=== PATIENT | male | born 1970 | race Caucasian/White ===

== ENCOUNTER 2020-04-30 13:51 | Emergency (ER) | payer OTHER, SELFPAY ==
[2020-04-30 15:20] VITALS: BP 140/98; PULSE 94; RESP 20; TEMP 36.3; O2SAT 98; BMI 29.1
--- NOTE | 2020-04-30 15:30 | HMH.EDUTC ---
[facility] [place] Disposition Clinical Impression: Exposure to COVID-19 virus Disposition: Home, Self-Care Condition on Discharge: Good Instructions: Preventing the Spread of Coronavirus Discharge Instructions Additional Instructions: Drink plenty of fluids. Take tylenol or ibuprofen for pain or fever. Take the medications as directed. Follow up with your regular doctor. GO TO THE ER FOR ANY WORSENING SYMPTOMS Referrals: PCP,No [Primary Care Provider] - Time of Disposition: 15:31 Medical Decision Making - Medical Records Medical records reviewed: No: I reviewed the patient's medical records. - Gonzalez Inquiry Pt receiving controlled substance: No Vital Signs: 04/30/20 15:20 04/30/20 15:35 Temperature 97.4 F L 97.4 F L Temperature Source Oral Pulse Rate 94 H Pulse Rate [Right Brachial] 94 H Respiratory Rate 20 20 Blood Pressure 140/98 H Blood Pressure [Right Arm] 140/98 H Blood Pressure Mean [Right Arm] 112 Blood Pressure Source [Right Arm] Automatic Cuff Blood Pressure Position [Right Arm] Sitting 02 Sat by Pulse Oximetry 98 Oxygen Delivery Method Room Air Orders (Tests/Meds): ORDERS Category Date Time Status Covid-19 Nasal PCR ([facility]) Routine Lab 04/30/20 15:35 Received [facility] [place] HPI - General Stated complaint: covid test Time Seen by Provider: 04/30/20 15:30 - History of Present Illness Provider Complaint: He states that he has been exposed to covid thru his work. He denies any symptoms so far. - Related Data Previous Rx's Medication Instructions Recorded Albuterol Sulfate [Albuterol HFA 1 - 2 puffs IH Q4-6H PRN #1 inh 03/29/19 Inhaler] Azithromycin [Z-Chan 250mg Tab*] 250 mg PO UD DOSE PK #6 tab 03/29/19 Ibuprofen [Ibuprofen 600mg 600 mg PO Q6HP PRN #30 tab 03/29/19 Tablet] Oseltamivir Phosphate [Tamiflu 75 mg PO BID #10 cap 03/29/19 75mg Capsule] predniSONE [Deltasone 10mg tablet] 10 mg PO BID 3 Days #6 tab 03/29/19 Allergies Allergy/AdvReac Type Severity Reaction Status Date / Time NO KNOWN ALLERGIES Allergy Uncoded 04/07/17 15:36 [facility] History - Hepatitis A Screen Attestation statement:: This patient has been screened for Hepatitis A risk factors. I have reviewed the patient's past medical history: Yes - Social History Smoking Status: Current every day smoker Tobacco Type: cigarettes # Packs/Day (cigarettes): 1 Alcohol Intake: never Occupational Status: employed Housing: house ROS Obtained: Yes All systems reviewed & no additional complaints - Constitutional Constitutional: Reports system reviewed and no additional complaints, except as docu - Eyes Eyes: Reports system reviewed and no additional complaints, except as docu - ENT Ears, Nose, Mouth, and Throat: Reports system reviewed and no additional complaints, except as docu - Cardiovascular Cardiovascular: Reports system reviewed and no additional complaints, except as docu - Respiratory Respiratory: Reports system reviewed and no additional complaints, except as docu - Gastrointestinal Gastrointestingal: Reports: system reviewed and no additional complaints, except as docu Physical Exam - General General appearance: alert, in no apparent distress - Head Head exam: atraumatic, normocephalic, normal inspection - Eye Eye exam: Present: normal appearance, PERRL, EOMI - ENT ENT exam: Present: normal exam, normal oropharynx, mucous membranes moist, TM's normal bilaterally, normal external ear exam - Neck Neck exam: Present: normal inspection, full ROM, trachea midline. Absent: meningismus, lymphadenopathy - Chest Chest inspection: Present: normal inspection, symmetric chest wall rise. Absent: tenderness - Respiratory Respiratory exam: Present: normal lung sounds bilaterally. Absent: respiratory distress - Cardiovascular Cardiovascular exam: Present: regular rate, normal rhythm. Absent: JVD - Abdominal Exam Abdominal exam: Present: soft, nor
[2020-04-30 15:35] VITALS: BP 140/98; PULSE 94; RESP 20; TEMP 36.3; O2SAT 98
== END 2020-04-30 15:38 | disposition home or self-care (01) ==
PROVIDERS: Emergency Provider Nurse Practitioner Family
DX: Z20.822 Contact with and (suspected) exposure to COVID-19 (principal); F17.210 Nicotine dependence, cigarettes, uncomplicated
CPT/HCPCS: 99202; G0463; U0003

== ENCOUNTER → 2023-01-23 10:07 | Outpatient (CLI) | payer SELFPAY | LOC: LAB.DROPOF 01-24 10:08 | PROVIDERS: PCP Student in an Organized Health Care Education/Training Program; Visit Provider Student in an Organized Health Care Education/Training Program | DX: J02.9 Acute pharyngitis, unspecified (principal); Z72.0 Tobacco use | CPT/HCPCS: 87070 ==

== ENCOUNTER 2024-01-04 10:42 | Outpatient (CLI) | payer SELFPAY ==
[2024-01-04 18:50] LABS: Coronavirus 19, PCR Not Detected (NotDetected); Influenza A, PCR Not Detected (NotDetected); Influenza B, PCR Not Detected (NotDetected)
== END 2024-01-04 23:59 | disposition home or self-care (01) ==
LOC: LAB.DROPOF 01-05 11:09
PROVIDERS: PCP Student in an Organized Health Care Education/Training Program; Visit Provider Student in an Organized Health Care Education/Training Program
DX: J06.9 Acute upper respiratory infection, unspecified (principal); F17.210 Nicotine dependence, cigarettes, uncomplicated; Z11.52 Encounter for screening for COVID-19
CPT/HCPCS: 87636

== ENCOUNTER 2024-02-20 11:04 | Emergency (ER) | payer SELFPAY ==
[2024-02-20 11:06] VITALS: BP 152/97; PULSE 81; RESP 16; TEMP 36.6; O2SAT 98; BMI 28.0
--- NOTE | 2024-02-20 11:11 | HMH.EDGENADL ---
Discharge Plan Disposition Patient Disposition: Home, Self-Care Condition: Good Prescriptions Prescriptions: New ondansetron 4 mg tablet,disintegrating 4 mg PO Q8H PRN (Reason: nausea and vomiting) 5 Days Qty: 12 0RF No Action benzonatate 100 mg capsule 100 mg PO BID PRN (Reason: cough) Qty: 20 0RF amoxicillin-pot clavulanate 875-125 mg tablet 1 tab PO BID 10 Days Qty: 20 0RF Referrals Follow up/Referrals: Elizabeth Ross PA [Primary Care Provider] - See instructions Clinical Impressions Clinical Impression: Concussion Stand Alone Forms Stand Alone Forms: Work/School Release Instructions Patient Instructions: Concussion Print Language Print Language: Lithuanian Discharge ED Provider: Ely Skelton General Adult HPI General Chief complaint: Dizziness Stated complaint: WC-02/18/24 1900 hours,dizziness, headache Time Seen by Provider: 02/20/24 11:11 History of Present Illness HPI narrative: Patient is a 54-year-old with past medical history of 2 prior concussions and tobacco use disorder presents to the emergency department with head injury. Patient hit his head on a metal bar 2 days ago did not lose consciousness no blood thinner use and since hitting his head he has had intermittent dizziness blurred vision headache nausea without vomiting and ringing in his years. Symptoms are worse whenever he touches the part on his head that he hit. No lacerations associated with injury. Patient also notes whenever he is up around at work and also cooking. No chest pain palpitations or shortness of breath associated symptoms. Patient has improvement whenever he takes a break and lays down. Has been taking Tylenol and ibuprofen for the headache with improvement of symptoms. Headache is mild to moderate and does not interfere with his day-to-day activities. No neck pain. Related Data Previous Rx's ?Medication ?Instructions ?Recorded benzonatate 100 mg capsule 100 mg PO BID PRN cough #20 caps 01/04/24 amoxicillin 875 mg-potassium 1 tab PO BID 10 days #20 tabs 01/05/24 clavulanate 125 mg tablet ondansetron 4 mg disintegrating 4 mg PO Q8H PRN nausea and 02/20/24 tablet vomiting 5 days #12 tabs Allergies Allergy/AdvReac Type Severity Reaction Status Date / Time NO KNOWN ALLERGIES Allergy Uncoded 05/25/23 11:05 [facility] Disclaimer: The information contained in this section may have been updated after the patient was seen, as this information can be updated by other users. Medical History Crushing injury, wrist Surgical History H/O: vasectomy Family History Other No significant family history Social History Smoking Status: Current every day smoker tobacco type: cigarettes packs per day: 1 second hand exposure: Yes alcohol intake: never current occupational status: other Travel in the last 8 weeks: None housing: house Other Medical History Have you received the Pneumonia Vaccine: No ROS Obtained: Yes All systems reviewed & no additional complaints except as documented Physical Exam General General appearance: alert and in no apparent distress Head Head exam: atraumatic and normocephalic Eye Eye exam: Present normal appearance and PERRL ENT ENT exam: Present normal exam Neck Neck exam: Present normal inspection and full ROM; Absent tenderness Chest Chest inspection: Present normal inspection and symmetric chest wall rise Respiratory Respiratory exam: Absent respiratory distress Cardiovascular Cardiovascular exam: Present regular rate and normal rhythm Abdominal Exam Abdominal exam: Present soft; Absent distention or tenderness Extremities Exam Extremities exam: Present normal inspection Back Exam Back exam: Present normal inspection; Absent tenderness Neurological Exam Neurological exam: Present alert, oriented X3, CN II-XII intact, normal gait and other (normal finger to nose and heel to garcia, Romberg negative, no nystagmus); Absent motor sensory deficit Medical Decision Making Medical Records Screening: Per USPSTF and CDC recommendations, given the prevalence of disease in our region, it is our hospital?s policy to screen for HIV and viral Hepatitis for all patients aged 18 and over and those with ongoing risk factors. Gonzalez Inquiry Pt receiving controlled substance: No Vital Signs: 02/20/24 11:06 Temperature 97.8 F Temperature Source Oral Pulse Rate [Radial] 81 Respiratory Rate 16 Blood Pressure [Right Arm] 152/97 H Blood Pressure Mean [Right Arm] 115 Blood Pressure Source [Right Arm] Automatic Cuff Blood Pressure Position [Right Arm] Sitting 02 Sat by Pulse Oximetry 98 Oxygen Delivery Method Room Air Orders (Tests/Meds): ORDERS Category Date Time Status HIV (1&2) Antibody Rapid Stat Lab 02/20/24 11:21 Ordered Hep C Ab with Reflex to RNA Stat Lab 02/20/24 11:21 Ordered Medical Decision Narrative: In summary, this 54-year-old presents to the emergency department today with head injury. On initial evaluation patient is hemodynamically stable saturating appropriately on room air afebrile no acute distress. Differential diagnosis includes but is not limited to concussion vertebral artery dissection intracranial hemorrhage skull fracture. History and physical exam is reassuring low suspicion of vertebral artery dissection intracranial hemorrhage or skull fracture based off of [place]e CT head rule and benign neurological exam. Symptoms are most consistent with a concussion. Patient tolerating p.o. with pain controlled at this time did not receive medication for treatment. On reassessment symptoms are well-controlled amendable for discharge with concussion diagnosis and strict return precautions. Of note, social determinants of health include limited health literacy. Critical Care Critical Care Time Critical Care Time: No
--- NOTE | 2024-02-20 11:13 | PC.NURSE ---
DR STARK AT BEDSIDE
[2024-02-20 11:28] VITALS: BP 152/97; PULSE 72; RESP 18; TEMP 36.6; O2SAT 100
== END 2024-02-20 11:30 | disposition home or self-care (01) ==
PROVIDERS: Emergency Provider Student in an Organized Health Care Education/Training Program; PCP Student in an Organized Health Care Education/Training Program
DX: S06.0XAA Concussion with loss of consciousness status unknown, initial encounter (principal); R42 Dizziness and giddiness; R51.9 Headache, unspecified; R11.0 Nausea; H53.8 Other visual disturbances; W22.8XXA Striking against or struck by other objects, initial encounter; Y93.9 Activity, unspecified; Y92.9 Unspecified place or not applicable
CPT/HCPCS: 99283

== ENCOUNTER 2024-04-01 13:01 | Emergency (ER) | payer SELFPAY ==
[2024-04-01 13:10] VITALS: BMI 28.0
--- NOTE | 2024-04-01 13:11 | HMH.EDGENADL ---
Discharge Plan Disposition Patient Disposition: Home, Self-Care Condition: Good Prescriptions Prescriptions: New prednisone 50 mg tablet 50 mg PO DAILY 5 Days Qty: 5 0RF [id number] [Bromfed DM] 2-30-10 mg/5 mL syrup 5 ml PO Q4H PRN (Reason: sinus symptoms) Qty: 118 0RF amoxicillin-pot clavulanate 875-125 mg tablet 1 tab PO BID Qty: 20 0RF azithromycin 250 mg tablet 250 mg PO DAILY 6 Days Qty: 6 0RF Rx Instructions: start on day 2 of therapy azithromycin 250 mg tablet 250 mg PO DAILY 5 Days Qty: 5 0RF Discontinued azithromycin [Zithromax Z-Chan] 250 mg tablet See Rx Instructions PO .COMPLEX Qty: 6 0RF Rx Instructions: For 250 mg dose pack: take 500 mg today (day 1), then 250 mg for 4 days (days 2-5) PO No Action prednisone 20 mg tablet 20 mg PO BID Qty: 10 0RF benzonatate 100 mg capsule 100 mg PO BID PRN (Reason: cough) Qty: 20 0RF Referrals Follow up/Referrals: Elizabeth Ross PA [Primary Care Provider] - See instructions Activity Restrictions/Add. Instructions Additional Instructions/Restrictions: I have sent prescriptions into your pharmacy for steroids and inhaler and antibiotics. Please take the antibiotics until they are gone. Follow-up with your PCP in 48 hours for recheck. If your symptoms do not improve change or worsen follow-up with your PCP sooner or return to the ER. Clinical Impressions Clinical Impression: Right lower lobe pneumonia Qualifiers: Pneumonia type: due to unspecified organism Qualified Code(s): J18.9 - Pneumonia, unspecified organism Stand Alone Forms Stand Alone Forms: Work/School Release Instructions Patient Instructions: Pneumonia--Adult Print Language Print Language: Luxembourgish Discharge ED Provider: Martin Melton Adult HPI General Chief complaint: Upper Respiratory Infection Stated complaint: pain in lungs, congestion, cough, Time Seen by Provider: 04/01/24 13:11 History of Present Illness HPI narrative: Patient presents for evaluation of painful cough. Patient gives a history of 4 days of productive cough of yellow sputum that has continued to progress. Patient states his cough is very painful and it is keeping him up at night. He saw his PCP on Thursday however he was not prescribed anything for his cough. He states he gets so exhausted with coughing that it hurts so much that he is not doing much. Patient had to leave work today because of his cough he states. He denies fever chills hemoptysis hematochezia melena nausea vomiting diarrhea. He does smoke a pack and a half of cigarettes a day. Related Data Previous Rx's ?Medication ?Instructions ?Recorded benzonatate 100 mg capsule 100 mg PO BID PRN cough #20 caps 03/28/24 prednisone 20 mg tablet 20 mg PO BID #10 tabs 03/28/24 amoxicillin 875 mg-potassium 1 tab PO BID #20 tabs 04/01/24 clavulanate 125 mg tablet azithromycin 250 mg tablet 250 mg PO DAILY 5 days #5 tabs 04/01/24 azithromycin 250 mg tablet 250 mg PO DAILY 6 days #6 tabs 04/01/24 pzthxbsbhahuuwi-cfgjggaqmuxlmqh-YL 5 ml PO Q4H PRN sinus symptoms 04/01/24 2 mg-30 mg-10 mg/5 mL oral syrup #118 mL (Bromfed DM) prednisone 50 mg tablet 50 mg PO DAILY 5 days #5 tabs 04/01/24 Allergies Allergy/AdvReac Type Severity Reaction Status Date / Time No Known Allergies Allergy Verified 03/28/24 09:09 [facility] Disclaimer: The information contained in this section may have been updated after the patient was seen, as this information can be updated by other users. Medical History Crushing injury, wrist Surgical History H/O: vasectomy Family History Other No significant family history Social History Smoking Status: Current every day smoker tobacco type: cigarettes packs per day: 1 second hand exposure: Yes alcohol intake: never current occupational status: other Travel in the last 8 weeks: None housing: house Have you lived/traveled outside [place] in past 30 days?: No Contact w/someone who lives/traveled outside [place] past 30 days?: No Exposure to someone with infectious disease in past 14 days?: No Do you have a fever (greater than 100.4 F or 38 C)?: No Have you tested positive for COVID-19: No Exposed to someone with COVID-19 in past 14 days?: No Do you have a sore throat?: Yes Do you have a cough?: Yes Do you have any weakness?: Yes Do you have any diarrhea?: No Are you experiencing any unusual bleeding?: No Do you have any muscle aches/pain?: No Do you have any abdominal pain?: No Are you experiencing loss of taste or smell?: No Other Medical History Have you received the Pneumonia Vaccine: No ROS Obtained: Yes Systems reviewed as appropriate & no additional complaints except as documented Physical Exam General General appearance: alert and in no apparent distress Respiratory Respiratory exam: Present normal lung sounds bilaterally and accessory muscle use Cardiovascular Cardiovascular exam: Present regular rate Neurological Exam Neurological exam: Present alert and oriented X3 Medical Decision Making Medical Records Medical records reviewed: Yes I reviewed the patient's medical records. Screening: Per USPSTF and CDC recommendations, given the prevalence of disease in our region, it is our hospital?s policy to screen for HIV and viral Hepatitis for all patients aged 18 and over and those with ongoing risk factors. Gonzalez Inquiry Pt receiving controlled substance: No Vital Signs: 04/01/24 13:13 04/01/24 14:39 Temperature 97.5 F L 97.3 F L Temperature Source Oral Oral Pulse Rate 82 Pulse Rate [Right Radial] 90 Respiratory Rate 18 20 Blood Pressure 120/84 Blood Pressure [Right Arm] 157/89 H Blood Pressure Mean [Right Arm] 111 02 Sat by Pulse Oximetry 99 Lab Data Lab results reviewed: Yes I reviewed the patient's lab results. Lab Results 04/01/24 13:07: SARS-CoV-2 (PCR) Not detected, Influenza A Untype (PCR) Not detected, Influenza Type B (PCR) Not detected 04/01/24 13:55: WBC 7.5, RBC 5.59, Hgb 16.4, Hct 48.2, MCV 86.3, MCH 29.3, MCHC 33.9, RDW 14.4, Plt Count 262, MPV 6.7 L, Neut % (Auto) 78.3, Lymph % (Auto) 16.3, [place] % (Auto) 3.9, Eos % (Auto) 0.7, Baso % (Auto) 0.8, Neut # (Auto) 5.9, Lymph # (Auto) 1.2, [place] # (Auto) 0.3, Eos # (Auto) 0.1, Baso # (Auto) 0.1 04/01/24 14:27: Sodium 136, Potassium 4.5, Chloride 109 H, Carbon Dioxide 20 L, Anion Gap 11.5, BUN 19, Creatinine 0.60 L, Estimated Creat Clear 170, Estimated GFR 140, Est GFR ( Amer) 169, Glucose 132 H, Calcium 8.9 04/01/24 13:55 04/01/24 14:27 Orders (Tests/Meds): ED MEDICATIONS Discontinued Medications Generic Name Dose Route Start Last Admin Trade Name Freq PRN Reason Stop Dose Admin Acetaminophen 1,000 mg 04/01/24 13:14 04/01/24 13:25 Acetaminophen 500mg Tab PO 04/01/24 13:15 1,000 mg ONCE ONE Administration Albuterol/Ipratropium 6 ml 04/01/24 13:14 04/01/24 13:25 Ipratropium/Albuterol 3 Ml Neb 04/01/24 13:15 6 ml ONCE ONE Administration Amoxicillin/Clavulanate Potassium 1 each 04/01/24 13:43 04/01/24 14:30 Amoxicillin/Clavulanate Potassium 875/125mg Tablet PO 04/01/24 13:44 1 each ONCE ONE Administration Azithromycin 500 mg 04/01/24 13:43 04/01/24 14:30 Azithromycin 250mg Tablet PO 04/01/24 13:44 500 mg ONCE ONE Administration Ibuprofen 800 mg 04/01/24 13:14 04/01/24 13:26 Ibuprofen 400 Mg Tablet PO 04/01/24 13:15 800 mg ONCE ONE Administration Prednisone 60 mg 04/01/24 13:14 04/01/24 13:26 Prednisone 20mg Tab PO 04/01/24 13:15 60 mg ONCE ONE Administration ORDERS Category Date Time Status Chest XR 2 view (NOT portable) [XR chest 2V] Stat Exams 04/01/24 13:15 Completed BMP [Basic Metabolic Panel] Stat Lab 04/01/24 14:27 Completed CBC w/Auto Diff [Complete Blood Count Auto Diff] Stat Lab 04/01/24 13:55 Completed Rapid PCR Covid and Flu A/B Stat Lab 04/01/24 13:07 Completed Medical Decision Narrative: In summary patient is a 54-year-old male who presents to the emergency department for evaluation of painful cough and congestion. Patient is hemodynamically stable upon arrival, afebrile. Physical exam is remarkable for clear breath sounds bilaterally to the bases without adventitious sounds, no increased work of breathing no accessory muscle use. No palpable chest wall pain to palpation.. Differential diagnosis includes bronchitis versus pneumonia versus COPD exacerbation etc. Initial workup will be conducted with COVID and flu swabs plain film chest x-ray. Initial interventions include prednisone DuoNeb. Initial workup reviewed by me shows that his hematologic labs are nonactionable including normal white count with no neutrophilic shift and his COVID and flu swabs are negative but my informal interpretation of a chest x-ray shows a right lower lobe pneumonia. Upon repeat evaluation patient actually had significant improvement after initial intervention. Given this patient is appropriate for discharge with prescription for Augmentin and azithromycin with first doses given here. Patient also be prescribed steroids and Bromfed. Critical Care Critical Care Time Critical Care Time: No
[2024-04-01 13:13] VITALS: BP 157/89; PULSE 90; RESP 18; TEMP 36.4; O2SAT 99; BMI 28.0
[2024-04-01 13:13] LABS: Coronavirus 19, PCR Not Detected (NotDetected); Influenza A, PCR Not Detected (NotDetected); Influenza B, PCR Not Detected (NotDetected)
--- NOTE | 2024-04-01 13:15 | XR_ITS ---
FINAL REPORT CLINICAL HISTORY: Cough and congestion FINDINGS: CHEST 2 VIEWS PA AND LATERAL The heart is normal in size. The mediastinum is unremarkable. The lungs are hyperinflated consistent with COPD. There is mild right base opacity, favor atelectasis over pneumonia. There is no pneumothorax. IMPRESSION: Right base atelectasis over pneumonia. COPD. Reviewed, Interpreted and Dictated by Jaime Zhou III, MD Transcribed by Belen Srinivasan Authenticated and . [facility]
--- NOTE | 2024-04-01 13:20 | PC.NURSE ---
PT TO XR
[2024-04-01] MEDS: ACETAMINOPHEN 500MG TAB 1000 MG PO (13:25)
[2024-04-01] MEDS: IPRATROPIUM/ALBUTEROL 3 ML NEB 6 ML IH (13:25)
[2024-04-01] MEDS: predniSONE 20MG TAB 60 MG PO (13:26)
[2024-04-01] MEDS: IBUPROFEN 400 MG TABLET 800 MG PO (13:26)
[2024-04-01 14:08] LABS: Basophils # 0.1 K/mm3 (0-0.2); Basophils % 0.8 % (0.1-2.0); Eosinophils # 0.1 K/mm3 (0.0-0.4); Eosinophils % 0.7 % (0.1-12.0); Hematocrit 48.2 % (42.0-52.0); Hemoglobin 16.4 g/dL (14.1-18.0); Lymphocytes # 1.2 K/mm3 (0.7-4.5); Lymphocytes % 16.3 % (10-50); Mean Corpuscular HGB Conc 33.9 g/dL (31.8-35.4); Mean Corpuscular Hemoglobin 29.3 pg (27.0-31.2); Mean Corpuscular Volume 86.3 fl (80-94); Mean Platelet Volume 6.7 fl (7.4-10.4); Monocytes # 0.3 K/mm3 (0.1-1.0); Monocytes % 3.9 % (1.7-9.3); Neutrophils # 5.9 K/mm3 (1.8-7.8); Neutrophils % 78.3 % (37.0-80.0); Platelet Count 262 K/mm3 (142-424); Red Blood Count 5.59 M/mm3 (4.60-6.20); Red Cell Distribution Width 14.4 % (11.5-17.5); White Blood Count 7.5 K/mm3 (4.8-10.8)
--- NOTE | 2024-04-01 14:16 | PC.NURSE ---
I spoke with Elisa to confirm the 5 day azithromycin med.
[2024-04-01] MEDS: AMOXICILLIN/CLAVULANATE POTASSIUM 875/125MG TABLET 1 EACH PO (14:30)
[2024-04-01] MEDS: AZITHROMYCIN 250MG TABLET 500 MG PO (14:30)
[2024-04-01 14:39] VITALS: BP 120/84; PULSE 82; RESP 20; TEMP 36.3
[2024-04-01 14:45] LABS: Chloride 109 mmol/L (98-107); Sodium 136 mmol/L (136-145)
[2024-04-01 14:46] LABS: Potassium 4.5 mmoL/L (3.5-5.1)
[2024-04-01 14:48] LABS: Blood Urea Nitrogen 19 mg/dl (9-20); Creatinine Clearance Estimated 170 mL/min (50-200); Estimated Glomerular Filt Rate 140 ml/min (>60); GFR (African American) 169 ML/MIN (>60)
[2024-04-01 14:49] LABS: Anion Gap 11.5 mEq/L (5-15); Calcium 8.9 mg/dl (8.4-10.2); Carbon Dioxide 20 mmol/L (22.0-30.0); Glucose 132 mg/dl (74-100)
== END 2024-04-01 14:40 | disposition home or self-care (01) ==
PROVIDERS: Physician Assistant; Emergency Provider Student in an Organized Health Care Education/Training Program; PCP Student in an Organized Health Care Education/Training Program
DX: J18.9 Pneumonia, unspecified organism (principal); R05.8 Other specified cough; R07.1 Chest pain on breathing; R09.81 Nasal congestion; F17.210 Nicotine dependence, cigarettes, uncomplicated
CPT/HCPCS: 71046; 80048; 85025; 87636; 99283; J7620

== ENCOUNTER 2024-05-11 10:31 | Outpatient (CLI) | payer SELFPAY ==
[2024-05-11 11:20] LABS: Alanine Aminotransferase 17 U/L (12-78); Albumin Level 4.2 g/dl (3.5-5.0); Albumin/Globulin Ratio 1.7 (1.1-1.8); Alkaline Phosphatase 71 U/L (38-126); Anion Gap 12.4 mEq/L (5-15); Aspartate Amino Transferase 22 U/L (17-59); Bilirubin,Total 0.3 mg/dl (0.2-1.3); Blood Urea Nitrogen 20 mg/dl (9-20); Calcium 9.7 mg/dl (8.4-10.2); Carbon Dioxide 25 mmol/L (22.0-30.0); Chloride 105 mmol/L (98-107); Chol/HDL Ratio 4.5 (1-3.5); Cholesterol 183 mg/dl (140-200); Estimated Glomerular Filt Rate 140 ml/min (>60); GFR (African American) 169 ML/MIN (>60); Globulin 2.5 g/dL (1.3-3.2); Glucose 97 mg/dl (74-100); HDL Cholesterol 41 mg/dl (40-60); Potassium 4.4 mmoL/L (3.5-5.1); Sodium 138 mmol/L (136-145); Total Protein,Serum 6.7 g/dl (6.3-8.2); Triglycerides 97 mg/dl (30-150); VLDL Cholesterol 19 mg/dL (0-40)
[2024-05-11 11:32] LABS: Direct LDL Cholesterol 125.37 mg/dL (100-129)
[2024-05-11 11:52] LABS: Thyroid Stimulating Hormone 2.22 uIU/mL (0.465-4.68)
[2024-05-11 12:02] LABS: Basophils # 0.1 K/mm3 (0-0.2); Basophils % 0.9 % (0.1-2.0); Eosinophils # 0.2 K/mm3 (0.0-0.4); Eosinophils % 1.5 % (0.1-12.0); Hematocrit 45.2 % (42.0-52.0); Lymphocytes # 2.8 K/mm3 (0.7-4.5); Mean Corpuscular HGB Conc 33.2 g/dL (31.8-35.4); Mean Corpuscular Hemoglobin 28.6 pg (27.0-31.2); Mean Corpuscular Volume 86.3 fl (80-94); Mean Platelet Volume 9.3 fl (7.4-10.4); Monocytes # 0.4 K/mm3 (0.1-1.0); Monocytes % 4.3 % (1.7-9.3); Neutrophils # 6.7 K/mm3 (1.8-7.8); Neutrophils % 66.1 % (37.0-80.0); Platelet Count 292 K/mm3 (142-424); Red Blood Count 5.24 M/mm3 (4.60-6.20); Red Cell Distribution Width 13.3 % (11.5-17.5); White Blood Count 10.2 K/mm3 (4.8-10.8)
[2024-05-11 12:34] LABS: Hemoglobin A1C 5.3 % (4.0-6.0)
== END 2024-05-11 23:59 | disposition home or self-care (01) ==
LOC: LAB 10:32
PROVIDERS: PCP Student in an Organized Health Care Education/Training Program; Visit Provider Student in an Organized Health Care Education/Training Program
DX: I10 Essential (primary) hypertension (principal); Z13.29 Encounter for screening for other suspected endocrine disorder; Z12.5 Encounter for screening for malignant neoplasm of prostate; Z13.1 Encounter for screening for diabetes mellitus; Z13.220 Encounter for screening for lipoid disorders
CPT/HCPCS: 36415; 80053; 80061; 83036; 84443; 85025; G0103

== ENCOUNTER 2024-06-01 07:01 | Outpatient (CLI) | payer SELFPAY ==
--- NOTE | 2024-06-01 07:15 | CT_ITS ---
FINAL REPORT TECHNIQUE: Axial CT images of the chest were obtained without contrast. Low-dose protocol was utilized. This study was performed with techniques to keep radiation doses as low as reasonably achievable (ALARA). Individualized dose reduction techniques using automated exposure control or adjustment of mA and/or kV according to the patient's size were employed. CLINICAL HISTORY: lung cancer screening smokes 1 1/2 pks per day x 42 yrs COMPARISON: None FINDINGS: CT CHEST WITHOUT, LOW DOSE SCREENING CT Di Vol: 2.90 mGy DLP: 112.03 mGy*cm There is no axillary, mediastinal, or hilar adenopathy. The heart size is normal. There is no pleural or pericardial effusion. The lung windows show no suspicious mass or nodule. Moderate emphysematous changes are noted. Limited images of the upper abdomen demonstrate no acute findings. IMPRESSION: No suspicious mass or nodule. LR Category 1: 12 month follow-up low-dose chest CT is recommended per Fleischner criteria. Reviewed, Interpreted and Dictated by Skye Collins MD Transcribed by Lula Dickerson Authenticated and [facility]
== END 2024-06-01 23:59 | disposition home or self-care (01) ==
PROVIDERS: PCP Student in an Organized Health Care Education/Training Program; Visit Provider Student in an Organized Health Care Education/Training Program
DX: F17.210 Nicotine dependence, cigarettes, uncomplicated (principal)
CPT/HCPCS: 71271